=== PATIENT | male | born 1975 | race Caucasian/White ===

== ENCOUNTER 2019-04-17 08:00 | Outpatient (RCR) | payer OTHER, SELFPAY | END 2019-04-17 08:05 | disposition home or self-care (01) | LOC: PT 08:00 | PROVIDERS: PCP Family Medicine; Visit Provider Orthopaedic Surgery Adult Reconstructive Orthopaedic Surgery | DX: M25.552 Pain in left hip (principal) | CPT/HCPCS: 97010; 97014; 97110; 97163; 97164; G0283 ==

== ENCOUNTER 2020-02-24 10:20 | Emergency (ER) | payer OTHER, SELFPAY ==
[2020-02-24 10:37] VITALS: BP 169/103; PULSE 82; RESP 14; TEMP 37; O2SAT 99; BMI 19.7
--- NOTE | 2020-02-24 10:44 | HMH.EDUTC ---
[facility] [place] Clinical Impression: Encounter for screening laboratory testing for COVID-19 virus, Nausea Disposition: Home, Self-Care Condition on Discharge: Good Instructions: DI for Headache, Ondansetron, Ibuprofen, Preventing the Spread of Coronavirus Discharge Instructions Additional Instructions: *Monitor Temp, Over the counter Motrin or Tylenol as directed/as needed Tylenol every 4 hours and Motrin every 6 hours (as long as your family doctor has told you that you can take it) for fever or headache pain. and straight to ER if unable to lower temp less than 101.0 after medication given *Warm salt water gargles may help to soothe the throat *Throat Lozenges *Warm fluids like tea with honey may help to soothe the throat *Sleep elevated *Humidifier/Vaporizer *Zofran for nausea and vomiting Follow up IMMEDIATELY for new or worsening symptoms or no Noticeable improvement over the next 48-72 hours. 911 for difficulty breathing or swallowing Over the counter Motrin and/or Tylenol as directed on the package for headache then lay down in dark room You was tested for today for COVID19 your test result should be back in the next 24 hours, you may call tomorrow after 9am to see if your test results are back and the result You was given a handout with instructions for Self Quarantine and Self isolation for while you wait on test results and what to do if they are positive Your blood pressure was elevated in the [facility] today make sure to follow up with Family Doctor for further evaluation and treatment Prescriptions: Ondansetron [Zofran 4mg ODT] 4 mg PO TIDP PRN #12 tab PRN Reason: Nausea Transmission Status: Pending to [facility] Referrals: Cordelia Blas [Primary Care Provider] - As needed Forms: Work/School Release Time of Disposition: 10:56 Medical Decision Making - Hollis Inquiry Pt receiving controlled substance: No Hollis was queried for this patient: No Vital Signs: 02/24/20 10:37 Temperature 98.6 F Temperature Source Oral Pulse Rate [Radial] 82 Respiratory Rate 14 Blood Pressure [Right Arm] 169/103 H Blood Pressure Mean [Right Arm] 125 Blood Pressure Source [Right Arm] Automatic Cuff Blood Pressure Position [Right Arm] Sitting 02 Sat by Pulse Oximetry 99 Oxygen Delivery Method Room Air Orders (Tests/Meds): ORDERS Category Date Time Status Covid-19 Nasal PCR Sendout Agustín Routine Lab 02/24/20 10:35 Ordered Medical Decision Narrative: Patient blood pressure elevated discussed with patient and he agreed to follow up with His PCP for further evaluation [facility] [place] - General Stated complaint: nauseous, headache Time Seen by Provider: 02/24/20 10:44 Mode of Arrival: Ambulatory Source of Information: Patient Limitations: No Limitations Description of Symptoms (Recalled from Triage Doc. by RN): NAUSEA, ÁLVAREZ, HOT/COLD ALL NIGHT, DENIES FEVER, STARTED SUNDAY NIGHT. HEENT Symptoms (Recalled from RN notes): Yes Resp Symptoms (Recalled from RN notes): No Skin Symptoms (Recalled from RN notes): No MS Symptoms (Recalled from RN notes): No Functional Status (Recalled from RN notes): WNL - History of Present Illness Provider Complaint: Patient states that he worked outside all weekend and on Sunday night he started having a headache, nausea and achy like feeling State that he didnt go to work yesterday and was going to go back today but they wouldnt let him return to work until he was tested for COVID States that today headache is gone today and he is feeling better still having a little nausea and wanting a COVID test - Related Data Previous Rx's Medication Instructions Recorded Ondansetron [Zofran 4mg ODT] 4 mg PO TIDP PRN #12 tab 02/24/20 Allergies Allergy/AdvReac Type Severity Reaction Status Date / Time No Known Allergies Allergy Unknown Uncoded 02/24/20 10:41 - Worker's Comp Is this a Worker's Comp case?: No [facility] History - Hepatitis A Screen Drug use history?: No
[2020-02-24 11:05] VITALS: BP 169/103; PULSE 82; RESP 14; TEMP 37; O2SAT 99
[2020-02-25 09:12] LABS: Covid-19 Nasal PCR Sendout Lex NOT DETECTED
== END 2020-02-24 11:06 | disposition home or self-care (01) ==
PROVIDERS: Emergency Provider Nurse Practitioner; PCP Family Medicine
DX: Z20.828 Contact with and (suspected) exposure to other viral communicable diseases (principal); R11.0 Nausea; R51.9 Headache, unspecified; F17.210 Nicotine dependence, cigarettes, uncomplicated
CPT/HCPCS: 99201; U0004

== ENCOUNTER → 2021-03-04 08:36 | Outpatient (CLI) | payer OTHER, SELFPAY ==
--- NOTE | 2021-03-04 | CA_ITS ---
APPROVED REPORT Exam: Exercise Treadmill Ht: 6 ft 3 in Wt: 165 lbs BSA: 2.02 m2 HR: 87 bpm BP: 130/92 mmHg Rhythm: NSR Medical History Allergies: No known drug allergies Stress Test Details HR Resting HR: 87 bpm Max Heart Rate (APMHR): 177.576390 bpm Max HR Achieved: 175 bpm Target HR (85% APMHR): 150.049465 bpm % of APMHR: 98.87 Recovery HR: 130 bpm BP Resting BP: 130.0/92.0 mmHg Max BP: 158.0/90.0 mmHg Recovery BP: 157.0/96.0 mmHg ECG Resting ECG: NSR Stress ECG Conclusion PATIENT EXERCISED 12:32 MINUTES ON AUSTEN PROTOCOL WITH MAX HEART RATE 175 BPM WHICH IS 116% OF PM FOR AGE. MAX BP 158/90. METS = 12.8. TEST STOPPED DUE TO LEG DISCOMFORT. NO SYMPTOMS OR ARRHYTHMIAS/ECTOPY. < 1.[address] SEGMENT CHANGES. NEGATIVE STRESS. Electronically signed by : Curtis Hunter MD 03/07/2021 19:46:06
== END ==
PROVIDERS: PCP Family Medicine; Visit Provider Family Medicine
DX: R07.9 Chest pain, unspecified (principal)
CPT/HCPCS: 93017

== ENCOUNTER 2023-11-18 08:28 | Emergency (ER) | payer BC, SELFPAY ==
[2023-11-18 08:40] VITALS: BP 153/96; PULSE 100; RESP 18; TEMP 36.7; O2SAT 97; BMI 19.8
[2023-11-18] MEDS: TET/DIPHTH/PERT-ADULT 0.5ML SYRINGE 0.5 ML IM (08:55)
--- NOTE | 2023-11-18 09:07 | EXP.UTC ---
Discharge Plan Disposition Patient Disposition: Home, Self-Care Condition: Good Prescriptions Prescriptions: New amoxicillin-pot clavulanate 875-125 mg Tablet 1 tab PO Q12H 7 Days Qty: 14 0RF No Action ondansetron 4 MG tablet,disintegrating 4 mg PO TIDP PRN (Reason: Nausea) Qty: 12 0RF Referrals Follow up/Referrals: Cordelia Blas [Primary Care Provider] - See instructions Activity Restrictions/Add. Instructions Additional Instructions/Restrictions: Follow up with your Family Doctor if no improvement or any worsening of symptoms Take medication as prescribed Straight to ER if any life threatening symptoms Clinical Impressions Clinical Impression: Puncture wound Instructions Patient Instructions: Amoxicillin and Clavulanic Acid, DI for Puncture Wound Discharge ED Provider: Lisandra Yañez [facility] General Stated complaint: ao 11/16 fishing hook struck left arm Mode of Arrival: Ambulatory Source of Information: Patient Limitations: No Limitations Time Seen by Provider: 11/18/23 09:07 Description of Symptoms (Recalled from Triage Doc. by RN): PATIENT STATES A MARY CARMEN FISH HOOK WENT THROUGH HIS LEFT FOREARM YESTERDAY. BRUISING NOTED TO AREA. TDAP NEED HEENT Symptoms (Recalled from RN notes): No Resp Symptoms (Recalled from RN notes): No Skin Symptoms (Recalled from RN notes): Yes MS Symptoms (Recalled from RN notes): No Functional Status (Recalled from RN notes): WNL History of Present Illness Provider Complaint: Patient states that he was cleaning in his garage yesterday when a mary carmen dirty fish hook went into his left forearm causing bruising and swelling States he was able to pull it out but was worried about infection and needing a Tdap so he came in Related Data Previous Rx's Medication Instructions Recorded ondansetron 4 mg disintegrating 4 mg PO TIDP PRN Nausea #12 tabs 02/24/20 tablet amoxicillin 875 mg-potassium 1 tab PO Q12H 7 days #14 tabs 11/18/23 clavulanate 125 mg tablet Allergies Allergy/AdvReac Type Severity Reaction Status Date / Time No Known Allergies Allergy Unknown Uncoded 02/24/20 10:41 Worker's Comp Is this a Worker's Comp case?: No [facility] Disclaimer: The information contained in this section may have been updated after the patient was seen, as this information can be updated by other users. Surgical History (Updated 11/18/23 @ 09:05 by Sole Field RN) History of hip replacement Social History Smoking Status: Current every day smoker tobacco type: cigarettes packs per day: 1 alcohol intake: never substance use type: denies use current occupational status: employed Travel in the last 8 weeks: None ROS Obtained: Yes All systems reviewed & no additional complaints except as documented and Yes Systems reviewed as appropriate & no additional complaints except as documented Constitutional Constitutional: Reports system reviewed and no additional complaints, except as documented and Reports as per HPI ENT Ears, Nose, Mouth, and Throat: Reports system reviewed and no additional complaints, except as documented and Reports as per HPI Cardiovascular Cardiovascular: Reports system reviewed and no additional complaints, except as documented and Reports as per HPI Respiratory Respiratory: Reports system reviewed and no additional complaints, except as documented and Reports as per HPI Gastrointestinal Gastrointestingal: Reports system reviewed and no additional complaints, except as documented and as per HPI Integumentary/Breasts Skin/Breast: Reports system reviewed and no additional complaints, except as documented, Reports as per HPI and Reports other (puncture wound to left forearm with bruising and swelling) Physical Exam General General appearance: alert and in no apparent distress ENT ENT exam: Present mucous membranes moist Respiratory Respiratory exam: Present normal lung sounds bilaterally; Absent respiratory distress or wheezes Cardiovascular Cardiovascular exam: Present regular rate, normal rhythm and normal heart sounds Expanded Upper Extremity Exam Left: L/R Arms Bottom View: 1. bruising and swelling noted puncture wound noted Neurological Exam Neurological exam: Present alert, oriented X3 and normal gait Medical Decision Making Hollis Inquiry Pt receiving controlled substance: No Hollis was queried for this patient: No Vital Signs: 11/18/23 08:40 11/18/23 08:40 Temperature 98.0 F 98.0 F Temperature Source Oral Oral Pulse Rate [Left Brachial] 100 H 100 H Respiratory Rate 18 18 Blood Pressure [Left Arm] 153/96 H 153/96 H Blood Pressure Mean [Left Arm] 115 115 Blood Pressure Source [Left Arm] Automatic Cuff Automatic Cuff Blood Pressure Position [Left Arm] Sitting Sitting 02 Sat by Pulse Oximetry 97 97 Oxygen Delivery Method Room Air Room Air Orders (Tests/Meds): ED MEDICATIONS Discontinued Medications Generic Name Dose Route Start Last Admin Trade Name Freq PRN Reason Stop Dose Admin Tetanus/Reduced Diphtheria/Acell Pertussis 0.5 ml 11/18/23 08:50 11/18/23 08:55 Tet/Diphth/Pert-Adult 0.5ml Syringe IM 11/18/23 08:51 0.5 ml .ONCE ONE Administration
[2023-11-18 09:14] VITALS: BP 153/96; PULSE 100; RESP 18; TEMP 36.7; O2SAT 97
== END 2023-11-18 09:19 | disposition home or self-care (01) ==
PROVIDERS: Emergency Provider Nurse Practitioner; PCP Family Medicine
DX: S51.832A Puncture wound without foreign body of left forearm, initial encounter (principal); Z23 Encounter for immunization; W45.8XXA Other foreign body or object entering through skin, initial encounter
CPT/HCPCS: 90471; 90715; 99204; 99212; G0463

== ENCOUNTER 2023-12-23 08:04 | Emergency (ER) | payer BC, SELFPAY ==
[2023-12-23 08:15] VITALS: BP 126/86; PULSE 87; RESP 16; TEMP 36.4; O2SAT 97
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
--- NOTE | 2023-12-23 08:21 | PC.NURSE ---
notified provider of pt symptoms and complaints, verbal orders received.
--- NOTE | 2023-12-23 08:25 | PC.NURSE ---
pt to radiology
--- NOTE | 2023-12-23 09:29 | PC.NURSE ---
0925-pt transferred to ER room 8.
[2023-12-23 09:30] VITALS: BP 150/90; PULSE 76; RESP 18; TEMP 36.6; O2SAT 98
--- NOTE | 2023-12-23 09:33 | PC.NURSE ---
STAFF AT BS
--- NOTE | 2023-12-23 09:38 | PC.NURSE ---
i placed pt in a c collar. @ bedside
--- NOTE | 2023-12-23 09:45 | CT_ITS ---
PROCEDURE INFORMATION: Exam: CT Thoracic Spine Without Contrast Exam date and time: 12/23/2023 9:58 AM Age: 48 years old Clinical indication: Injury or trauma; Additional info: Cervical spine injury TECHNIQUE: Imaging protocol: Computed tomography of the thoracic spine without contrast. Radiation optimization: All CT scans at this facility use at least one of these dose optimization techniques: automated exposure control; mA and/or kV adjustment per patient size (includes targeted exams where dose is matched to clinical indication); or iterative reconstruction. COMPARISON: CR Thoracic spine 12/23/2023 8:17 AM FINDINGS: Bones/joints: Query acute nondisplaced compression fractures involving the superior endplates of T1 and T2 with less than 10% height loss and no bony retropulsion. Mild wedging of the T7 and T8 vertebral bodies appears similar to 2018. No evidence of high-grade spinal canal or neural foraminal stenosis. Soft tissues: Unremarkable. IMPRESSION: Query acute nondisplaced compression fractures involving the superior endplates of T1 and T2 with less than 10% height loss and no bony retropulsion.
--- NOTE | 2023-12-23 09:45 | CT_ITS ---
PROCEDURE INFORMATION: Exam: CT Cervical Spine Without Contrast Exam date and time: 12/23/2023 9:56 AM Age: 48 years old Clinical indication: Injury or trauma; Additional info: Cervical spine injury TECHNIQUE: Imaging protocol: Computed tomography of the cervical spine without contrast. Radiation optimization: All CT scans at this facility use at least one of these dose optimization techniques: automated exposure control; mA and/or kV adjustment per patient size (includes targeted exams where dose is matched to clinical indication); or iterative reconstruction. COMPARISON: CR XR CERVICAL SPINE 3V 12/23/2023 8:16 AM FINDINGS: Bones: Acute 3 column sagittally oriented fracture through the C6 vertebral body with involvement of the right C6 lamina and posterior spinous process. There is up to 30% height loss and 1-2 mm bony retropulsion. No evidence of high-grade spinal canal or neural foraminal stenosis. Lungs: Lung apices are normal. Soft tissues: Unremarkable. IMPRESSION: Acute 3 column sagittally oriented fracture through the C6 vertebral body with involvement of the right C6 lamina and posterior spinous process. There is up to 30% height loss and 1-2 mm bony retropulsion.
--- NOTE | 2023-12-23 09:47 | HMH.EDGENADL ---
Discharge Plan Disposition Patient Disposition: Xfer Other Condition: Fair Referrals Follow up/Referrals: Maynor Chapman [Primary Care Provider] - See instructions Clinical Impressions Clinical Impression: Unstable cervical spine, C6 cervical fracture Instructions Patient Instructions: DI for Neck Pain Print Language Print Language: Japanese Discharge ED Provider: Saundra Good General Adult HPI General Chief complaint: Neck Pain/Injury Stated complaint: AO12/21/24, inj back and neck jumping in pool Time Seen by Provider: 12/23/23 08:16 Mode of Arrival: Ambulatory Source of Information: Patient Limitations: No Limitations Description of Symptoms (Recalled from ER Triage Doc. by RN): sent over from [facility] with an acute compression fracture c6 History of Present Illness HPI narrative: Patient is a previously healthy 48-year-old male presenting from our urgent treatment clinic for a compression fracture of C6. Patient states that he dove headfirst into a 4 foot pool. States that he skidded off of the pool floor. Did immediately strike his head and states that he was seeing stars and had immediate pain in his neck feeling as though it was jammed and I still feel this way. Denies any neurologic symptoms at any point including numbness tingling burning weakness in his upper or lower extremities. Continues to state that his extremities feel completely normal. Had an x-ray that was performed in the urgent treatment clinic showing a C6 anterior compression wedge fracture and was sent to the emergency department for further evaluation and management. He was placed in a c-collar prior to my evaluation. Related Data Allergies Allergy/AdvReac Type Severity Reaction Status Date / Time No Known Allergies Allergy Unknown Uncoded 02/24/20 10:41 [facility] Disclaimer: The information contained in this section may have been updated after the patient was seen, as this information can be updated by other users. Surgical History (Updated 11/18/23 @ 09:05 by Sole Field RN) History of hip replacement Social History Smoking Status: Current every day smoker tobacco type: cigarettes packs per day: 1 alcohol intake: never substance use type: denies use current occupational status: employed Travel in the last 8 weeks: None ROS Obtained: Yes All systems reviewed & no additional complaints except as documented Physical Exam General General appearance: alert and in no apparent distress Neck Neck exam: Present other (In a cervical spine collar has tenderness in the midline the C6 region) Chest Chest inspection: Present normal inspection; Absent symmetric chest wall rise Respiratory Respiratory exam: Present normal lung sounds bilaterally; Absent respiratory distress Cardiovascular Cardiovascular exam: Present regular rate and normal rhythm Extremities Exam Extremities exam: Present other (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 he has normal median ulnar radial sensory and motor function) Neurological Exam Neurological exam: Present alert and oriented X3; Absent motor sensory deficit Medical Decision Making Hollis Inquiry Pt receiving controlled substance: No Vital Signs: 12/23/23 08:15 12/23/23 09:30 Temperature 97.6 F 97.8 F Temperature Source Temporal Artery Scan Oral Pulse Rate [Left Radial] 87 76 Respiratory Rate 16 18 Blood Pressure [Left Arm] 126/86 150/90 H Blood Pressure Mean [Left Arm] 99 110 Blood Pressure Source [Left Arm] Automatic Cuff Blood Pressure Position [Left Arm] Sitting 02 Sat by Pulse Oximetry 97 98 Oxygen Delivery Method Room Air Room Air Orders (Tests/Meds): ED MEDICATIONS Generic Name Dose Route Start Last Admin Trade Name Freq PRN Reason Stop Dose Admin Morphine Sulfate 4 mg 12/23/23 10:28 Morphine 4mg/Ml Syringe IV 12/23/23 10:29 ONCE ONE Ondansetron HCl 4 mg 12/23/23 10:28 Ondansetron 4mg/2ml Vial IV 12/23/23 10:29 ONCE ONE ORDERS Category Date Time Status CT cervical spine wo con Stat Cat Scan 12/23/23 09:[address] thoracic spine wo con Stat Cat Scan 12/23/23 09:45 Completed Thoracic spine 2 views [XR thoracic spine 2V] Stat Exams 12/23/23 08:19 Completed XR cervical spine 3V Stat Exams 12/23/23 08:19 Completed Medical Decision Narrative: 48-year-old male with above history and physical normal neurologic exam has a C6 compression fracture we will obtain CT scans of his C and T-spine's for further evaluation. Assuming this is the only injury that we see I will discuss the case with a spine surgeon to ensure follow-up. He has a normal neurologic exam is normal certainly not can be a candidate for neurosurgical intervention right now and will need to be in a c-collar for an extended period of time. But he will need close follow-up to ensure resolution of his symptoms and to make sure that he has no other need for other surgical intervention. Reassessment 1030 patient remains neurologically intact CT scans performed to person interpreted also reviewed radiology reads and there is a 3 column C6 spine fracture extending through the anterior vertebral body going through the posterior aspect into the spinal canal through the right lamina and spinous process with a little bit of retropulsion. There is also some questionable T1 into wedge compression fractures but patient has no focal tenderness and there. Will keep him in logroll precautions until he is evaluated by the spine surgeons. Patient's been made aware that this is an unstable injury may require surgical intervention and understands the need to be evaluated by neurosurgical team. Patient is hemodynamically stable no evidence of shock no evidence of spinal cord injury from a clinical standpoint. He remains in a rigid cervical spine collar will be transported by EMS to [facility]. I spoke with Dr. Carmel Velasquez at [facility] who accepted the patient to [place] emergency department. Critical Care Critical Care Time Critical Care Time: Yes Attestation: On 12/23/23, the high probability of a clinically significant, sudden or life threatening deterioration of the following system(s) required my full and direct attention, intervention and personal management. The time I documented below is in addition to time spent performing reported procedures but includes the following listed in this critical care notation. Total Time Total Critical Care Time: 35
--- NOTE | 2023-12-23 09:51 | PC.NURSE ---
patient gone to CT at this time.
--- NOTE | 2023-12-23 10:16 | PC.NURSE ---
PT BACK FROM CT
--- NOTE | 2023-12-23 10:28 | PC.NURSE ---
[facility] called.
[2023-12-23] MEDS: ONDANSETRON 4MG/2ML VIAL 4 MG IV (10:35)
[2023-12-23] MEDS: MORPHINE 4MG/ML SYRINGE 4 MG IV (10:35)
--- NOTE | 2023-12-23 10:49 | PC.NURSE ---
Report called to Victoria at [facility]. [facility] notified of transfer.
[2023-12-23 11:17] VITALS: BP 158/104; PULSE 76; RESP 18; TEMP 36.6; O2SAT 98
== END 2023-12-23 11:18 | disposition short-term general hospital (02) ==
LOC: UTC 09:24 → ER 09:25
PROVIDERS: Emergency Provider Student in an Organized Health Care Education/Training Program; PCP Family Medicine
DX: S12.500A Unspecified displaced fracture of sixth cervical vertebra, initial encounter for closed fracture (principal); M54.2 Cervicalgia; F17.210 Nicotine dependence, cigarettes, uncomplicated; W16.522A Jumping or diving into swimming pool striking bottom causing other injury, initial encounter; Y92.9 Unspecified place or not applicable
CPT/HCPCS: 72040; 72070; 72125; 72128; 96374; 96375; 99285; 99291; J2270; J2405